=== PATIENT | female | born 1995 | race African-American/Black ===

== ENCOUNTER 2017-08-23 20:41 | Emergency (ER) | payer OTHER, MEDICAID ==
[~2017-08-23] VITALS: Ht 162.6 cm; Wt 90.7 kg
[~2017-08-23 20:41] MED LIST: ACCUNEB SO1.25 MG/1 INH; ACETAMINOPHEN-1 EAC1 PO; ALBUTEROL INHAL17 GM; ALBUTEROL INHAL17 GM IH; AMOXICILLIN 50500 MG PO; AMOXICILLIN875 MG PO; IBUPROFEN 800800 M1 PO; IBUPROFEN 800800 MG PO; INHALER FOR ASTHMA; KEFLEX500 MG PO; LIDOCAINE VISC100 M1 SWISH&SPIT; NEXPLANON68 MG SQ; PENICILLIN V P500 MG PO; PREDNISONE 20 M20 M1 PO; PREDNISONE 20 M20 MG PO; PREDNISONE50 MG PO; PROAIR HFA8.5 GM IH; PROAIR HFA8.5 GM INH; PROMETHAZINE D480 ML PO; TESSALON PERLE100 MG PO; ZOFRAN ODT4 MG PO
[2017-08-23 21:19] LABS: URINE BILIRUBIN NEGATIVE (Negative); URINE BLOOD NEGATIVE (Negative); URINE CLARITY CLEAR; URINE COLOR YELLOW; URINE GLUCOSE-RANDOM NEGATIVE (Negative); URINE KETONES TRACE (Negative); URINE LEUKOCYTES-REFLEX NEGATIVE (Negative); URINE NITRITE-REFLEX NEGATIVE (Negative); URINE PROTEIN TRACE (Negative); URINE SPECIFIC GRAVITY >= 1.030 (1.005-1.030)
[2017-08-23 21:25] LABS: ABSOLUTE BASOPHILS 0.1 thou/uL (0.0-0.2); ABSOLUTE EOSINOPHILS 0.1 thou/uL (0.0-0.7); ABSOLUTE LYMPHOCYTES 3.3 thou/uL (0.8-5.3); ABSOLUTE MONOCYTES 0.7 thou/uL (0.0-1.2); ABSOLUTE NEUTROPHILS 6.3 thou/uL (1.6-8.1); BASOPHILS 0.9 %; EOSINOPHILS 0.5 %; HEMATOCRIT 34.9 % (37.0-47.0); HEMOGLOBIN 11.3 gm/dL (12.0-15.0); LYMPHOCYTES 31.7 %; MCH 25.3 pg (26.0-34.0); MCHC 32.4 g/dL (28.0-37.0); MCV 78.1 fL (80.0-100.0); MPV 8.3 fl. (7.2-11.1); NUCLEATED RBCS 0 /100WBC; PLATELET COUNT* 258 thou/uL (150-400); POLYS 59.9 %; RBC 4.47 mil/uL (4.20-5.00); RDW-CV 16.2 % (10.5-14.5); WBC 10.5 thou/uL (4.0-11.0)
[2017-08-23 22:04] LABS: CALCIUM 9.1 mg/dL (8.5-10.1); CREATININE 0.9 mg/dL (0.6-1.3); POTASSIUM 3.4 mmol/L (3.5-5.1)
[2017-08-23 22:09] LABS: ALBUMIN 3.6 g/dL (3.4-5.0); TOTAL BILIRUBIN 0.2 mg/dL (<0.1-1.0); TOTAL PROTEIN 8.2 g/dL (6.4-8.2)
[2017-08-23 23:36] VITALS: BP 92/47
== END 2017-08-23 23:37 | disposition home or self-care (01) ==
LOC: M.ERS 20:41
PROVIDERS: Nurse Practitioner
DX: O99.011 Anemia complicating pregnancy, first trimester (principal); J45.909 Unspecified asthma, uncomplicated; F17.210 Nicotine dependence, cigarettes, uncomplicated; Z3A.01 Less than 8 weeks gestation of pregnancy; Z98.890 Other specified postprocedural states

== ENCOUNTER 2018-08-14 15:05 | Emergency (ER) | payer OTHER ==
[~2018-08-14] VITALS: Ht 162.6 cm; Wt 90.7 kg
[2018-08-14 16:05] VITALS: BP 99/82
== END 2018-08-14 16:05 | disposition home or self-care (01) ==
LOC: M.ERS 15:05
DX: J00 Acute nasopharyngitis [common cold] (principal); F17.210 Nicotine dependence, cigarettes, uncomplicated; J45.909 Unspecified asthma, uncomplicated; Z86.2 Personal history of diseases of the blood and blood-forming organs and certain disorders involving the immune mechanism; Z98.890 Other specified postprocedural states

== ENCOUNTER 2018-08-30 23:31 | Emergency (ER) | payer OTHER ==
[~2018-08-30] VITALS: Ht 162.6 cm; Wt 90.7 kg
[2018-08-30] MEDS ORDERED: IRON325 PO (23:44)
[2018-08-30] MEDS ORDERED: DIFLUCAN150 MG PO (23:46)
[2018-08-30 23:54] LABS: URINE BILIRUBIN NEGATIVE (Negative); URINE BLOOD NEGATIVE (Negative); URINE CLARITY CLEAR; URINE COLOR YELLOW; URINE GLUCOSE-RANDOM NEGATIVE (Negative); URINE KETONES NEGATIVE (Negative); URINE LEUKOCYTES-REFLEX NEGATIVE (Negative); URINE NITRITE-REFLEX NEGATIVE (Negative); URINE PROTEIN NEGATIVE (Negative); URINE SPECIFIC GRAVITY 1.015 (1.005-1.030)
[2018-08-31 00:04] VITALS: BP 102/72
== END 2018-08-31 00:04 | disposition home or self-care (01) ==
LOC: M.ERS 23:31
PROVIDERS: Family Medicine
DX: N89.8 Other specified noninflammatory disorders of vagina (principal); F17.210 Nicotine dependence, cigarettes, uncomplicated; J45.909 Unspecified asthma, uncomplicated; Z86.2 Personal history of diseases of the blood and blood-forming organs and certain disorders involving the immune mechanism; Z98.890 Other specified postprocedural states

== ENCOUNTER 2020-01-22 19:05 | Emergency (ER) | payer OTHER, MEDICAID ==
[~2020-01-22 19:05] MED LIST changes: +DIFLUCAN150 MG PO; +IRON325 PO
== END 2020-01-22 20:07 | disposition left against medical advice (07) ==
LOC: M.ERS 19:08
DX: Z53.21 Procedure and treatment not carried out due to patient leaving prior to being seen by health care provider (principal)